=== PATIENT | female | born 1995 | race Caucasian/White ===

== ENCOUNTER → 2019-02-10 15:09 | Outpatient (CLI) | payer OTHER, SELFPAY ==
--- NOTE | 2019-02-10 15:14 | US_ITS ---
US breast LT complete INDICATION: : galactorrhea ORDERING PHYSICIAN: Carlton Lentz MD PATIENT AGE: 23 years FINDINGS: No cystic or solid lesions demonstrated. Small nodes in the axilla. IMPRESSION: Negative. Negative ultrasound does not exclude possibility of underlying breast pathology. Any palpable nodule should be managed on clinical basis. BI-RADS Category: 1 Negative Follow-up suggested as clinically warranted (A letter has been sent to the patient regarding results of the study.)
--- NOTE | 2019-02-10 15:14 | US_ITS ---
US transvaginal HISTORY: ITS.REASON: PELVIC PAIN ORDERING PHYSICIAN: Carlton Lentz MD PATIENT AGE: 23 years Comparison: None FINDINGS: The uterus is 7 x 3 x 4 cm with a combined endometrial thickness of 9 mm. No uterine mass. Left ovary is 3 x 1.3 cm and has an unremarkable appearance. Right ovary is 3 x 3 cm with small follicles. Bilateral ovarian blood flow is present. No cul-de-sac fluid apparent. IMPRESSION: Unremarkable pelvic ultrasound
--- NOTE | 2019-02-10 15:14 | US_ITS ---
US breast RT complete INDICATION: Greenish discharge, galactorrhea ORDERING PHYSICIAN: Carlton Lentz MD PATIENT AGE: 23 years COMPARISON: None TECHNIQUE: Right breast ultrasound with axilla FINDINGS: No cystic or solid lesions demonstrated. Small nodes in the axilla IMPRESSION: Unremarkable. Negative ultrasound does not exclude the possibility of underlying breast pathology. Please correlate with physical exam. Any palpable nodule should be managed on a clinical basis. BI-RADS Category: 1 Negative Follow-up suggested as clinically warranted (A letter has been sent to the patient regarding results of the study.)
== END ==
PROVIDERS: Visit Provider Obstetrics & Gynecology
DX: R10.2 Pelvic and perineal pain (principal); N64.3 Galactorrhea not associated with childbirth
CPT/HCPCS: 76641; 76830

== ENCOUNTER → 2019-02-28 11:51 | Outpatient (CLI) | payer OTHER, SELFPAY ==
--- NOTE | 2019-02-28 11:56 | FL_ITS ---
FL hysterosalpingography CLINICAL INDICATION: ITS.REASON: fallopian tube occlusion ORDERING PHYSICIAN: Carlton Lentz MD PATIENT AGE: 23 years Comparison: None Fluoroscopy time: 47 seconds FINDINGS: Only 3 images are submitted to the which are Design Drafter Chief image. One image submitted with contrast injection. There is poor filling of the uterine canal with contrast present in the right isthmus of the uterus and in the right fallopian tube which is small with a somewhat irregular appearance. Contrast does flow into the peritoneum from the right. The left fallopian tube is not visualized on this exam. IMPRESSION: 1. Nonvisualization of left fallopian tube. 2. Poor visualization of the uterine cavity. 3. The right fallopian tube does fill and is somewhat small but does appear to be patent
== END ==
PROVIDERS: Visit Provider Obstetrics & Gynecology
DX: N97.1 Female infertility of tubal origin (principal)
CPT/HCPCS: 74740; Q9967

== ENCOUNTER 2020-09-04 22:45 | Emergency (ER) | payer MEDICAID, SELFPAY ==
[2020-09-04 22:59] VITALS: BP 109/51; PULSE 93; RESP 17; TEMP 36.8; O2SAT 100; BMI 21.4
--- NOTE | 2020-09-04 23:08 | HMH.EDWNDL ---
ED Disposition Clinical Impression: Laceration Disposition: Home, Self-Care Condition on Discharge: Good Instructions: DI for Laceration Repair Additional Instructions: suture out 10-12 days and recheck if needed Referrals: Madhu Canchola MD [Primary Care Provider] - - Critical Care Critical Care Time: No Attestation: On 09/04/20, the high probability of a clinically significant, sudden or life threatening deterioration of the following system(s) required my full and direct attention, intervention and personal management. The time I documented below is in addition to time spent performing reported procedures but includes the following listed in this critical care notation. Medical Decision Making - Medical Records Medical records reviewed: Yes: I reviewed the patient's medical records. - Ran Inquiry Pt receiving controlled substance: No Vital Signs: 09/04/20 22:59 Temperature 98.2 F Temperature Source Oral Pulse Rate [Right Brachial] 93 H Respiratory Rate 17 Blood Pressure [Right Arm] 109/51 L Blood Pressure Mean [Right Arm] 70 Blood Pressure Source [Right Arm] Automatic Cuff Blood Pressure Position [Right Arm] Sitting 02 Sat by Pulse Oximetry 100 Oxygen Delivery Method Room Air - Lab Data Lab results reviewed: Yes: I reviewed the patient's lab results. Orders (Tests/Meds): ED MEDICATIONS Discontinued Medications Generic Name Dose Route Start Last Admin Trade Name Freq PRN Reason Stop Dose Admin Tetanus/Diphtheria Toxoids 0.5 ml 09/04/20 23:04 09/04/20 23:12 Tetanus-Diphth Toxoid, Adult 0.5ml Syr IM 09/04/20 23:05 0.5 ml .ONCE ONE Administration Wound/Laceration HPI - General Chief Complaint: Wound/Laceration Stated Complaint: A 1202@2230 lac l hand Time Seen by Provider: 09/04/20 23:08 Mode of Arrival: Family Vehicle Source of Information: Patient, Spouse, Medical Record Limitations: No Limitations Description of Symptoms (Recalled from ER Triage Doc. by RN): pt states she was trying to open a package with a knife and slipped and cut the top of her left hand; no issues with movement noted. minimal bleeding. - History of Present Illness HPI narrative: lac to dorsum of lt hand at home tonight with knife Onset (ago): hour(s) Extremity Location: Left: hand Place: home Patient tetanus UTD: No Context: sharp object use Associated symptoms: none - Related Data Home Medications Medication Instructions Recorded Confirmed Buprenorphine HCl/Naloxone HCl 1 each SL DAILY 10/30/18 04/07/19 [Suboxone 8 mg-2 mg Sl Film] Allergies Allergy/AdvReac Type Severity Reaction Status Date / Time No Known Allergies Allergy Verified 03/13/19 08:22 [facility] History - Hepatitis A Screen Drug use history?: No High risk sexual behaviors?: No History of sexually transmitted infection?: No Currently employed?: No Childcare worker?: No Do you have indoor plumbing?: Yes Do you have electricity?: Yes Attestation statement:: This patient has been screened for Hepatitis A risk factors. I have reviewed the patient's past medical history: Yes Medical History: Denies:: Cancer, Diabetes Mellitus Type 1, Diabetes Mellitus Type 2, MRSA Laterality Cases: Bilateral: Tonsillectomy Other Surgeries: Yes: Other Amputation: No Fractures: No Comment: 2009- T&A. 2010- wisdom teeth. 2015- Dx. lap, Exp. lap, Evacuation of massive hemoperitoneum, adhesiolysis with partial omentectomy, Rt. SalpingX. 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 Ectopic ROS Obtained: Yes All systems reviewed & no additional complaints Physical Exam - General General appearance: alert - Hea
[2020-09-04 23:28] VITALS: BP 114/72; PULSE 73; RESP 18; TEMP 36.8; O2SAT 98
== END 2020-09-04 23:33 | disposition home or self-care (01) ==
PROVIDERS: Emergency Provider Emergency Medicine; PCP Emergency Medicine
DX: S61.412A Laceration without foreign body of left hand, initial encounter (principal); W26.0XXA Contact with knife, initial encounter; Y92.019 Unspecified place in single-family (private) house as the place of occurrence of the external cause; Z23 Encounter for immunization; F17.210 Nicotine dependence, cigarettes, uncomplicated
CPT/HCPCS: 12001; 90714; 99282

== ENCOUNTER → 2020-09-11 12:58 | Outpatient (CLI) | payer MEDICAID, SELFPAY ==
[2020-09-13 11:26] LABS: Covid-19 Nasal PCR Sendout Lex Not Detected
== END ==
PROVIDERS: PCP Emergency Medicine; Visit Provider Emergency Medicine
DX: Z03.818 Encounter for observation for suspected exposure to other biological agents ruled out (principal)
CPT/HCPCS: U0004

== ENCOUNTER → 2021-08-26 16:04 | Outpatient (CLI) | payer OTHER, SELFPAY | PROVIDERS: PCP Emergency Medicine; Visit Provider Nurse Practitioner | DX: Z20.822 Contact with and (suspected) exposure to COVID-19 (principal) | CPT/HCPCS: C9803; U0003; U0005 ==

== ENCOUNTER 2025-10-01 01:26 | Observation (INO) | payer SELFPAY ==
[2025-10-01] VITALS (12 sets, daily range): BP systolic 117–140; BP diastolic 74–103; PULSE 68–161; RESP 16–30; TEMP 36.6–36.9; O2SAT 91–99; BMI 29.2; BMI 26.1
--- NOTE | 2025-10-01 01:14 | ECG_ITS ---
APPROVED REPORT Exam: Resting ECG HR:166 bpm ECG Measurements Heart Rate 166 AXES ND 69 P 94 QRSd 100 QRS -35 QT 275 T 79 QTc 366 Conclusion SINUS TACHYCARDIA WITH SHORT ND INTERVAL INDETERMINATE AXIS INCOMPLETE RIGHT BUNDLE BRANCH BLOCK [90+ ms QRS DURATION, TERMINAL R IN V1/V2, 40+ ms S IN I/aVL/V4/V5/V6] st depression noted CRITICAL TEST RESULT UNCONFIRMED REPORT Electronically signed by : GERALD BOB, 10/05/2025 04:32:47
--- NOTE | 2025-10-01 01:23 | XR_ITS ---
PROCEDURE INFORMATION: Exam: XR Chest Exam date and time: 10/01/2025 1:37 AM Age: 30 years old Clinical indication: Other: Asthma exacerbation TECHNIQUE: Imaging protocol: Radiologic exam of the chest. Views: 1 view. COMPARISON: CT - ABDPELW CT abdomen pelvis w con 04/07/2019 12:51 AM FINDINGS: Lungs: Paucity of lung markings in the right upper lung zone may represent emphysematous changes. No consolidation. Prominent right hilar lymph node is noted. Pleural spaces: Unremarkable. No pleural effusion. No pneumothorax. Heart/Mediastinum: Unremarkable. No cardiomegaly. Vasculature: Unremarkable. Bones/joints: Unremarkable. IMPRESSION: Paucity of lung markings in the right upper lung zone may represent emphysematous changes. Solitary prominent right hilar lymph node.
--- NOTE | 2025-10-01 01:25 | ED_ITS ---
Discharge Plan Disposition Patient Disposition: Admitted Prescriptions Prescriptions: No Action buprenorphine-naloxone 1 EACH film 1 each SL DAILY Referrals Follow up/Referrals: Madhu Canchola MD [Primary Care Provider, Family Practice] - See instructions Clinical Impressions Clinical Impression: Asthma with severe exacerbation, Rhinovirus, Respiratory failure with hypoxia and hypercapnia Print Language Print Language: German Discharge ED Provider: Archie Mitchell General Adult HPI General Chief complaint: Shortness of Breath/Dyspnea Stated complaint: SOA Time Seen by Provider: 10/01/25 01:26 History of Present Illness HPI narrative: 30-year-old female with history of asthma presents for shortness of breath. She reports that she has had worsening shortness of breath since . She has been using her breathing treatments at home but they have not been working. She reports chronic tachycardia with a baseline heart rate around 115. She reports nonproductive cough. Feels feverish. Related Data Home Medications ?Medication ?Instructions ?Recorded ?Confirmed buprenorphine 8 mg-naloxone 2 mg 1 each SL DAILY drug abuse 10/30/18 04/07/19 sublingual film Allergies Allergy/AdvReac Type Severity Reaction Status Date / Time No Known Allergies Allergy Verified 03/13/19 08:22 [facility] Disclaimer: The information contained in this section may have been updated after the patient was seen, as this information can be updated by other users. Social History Smoking Status: Former smoker tobacco type: cigarettes packs per day: 1 alcohol intake: never substance use type: unknown current occupational status: unemployed Travel in the last 8 weeks?: None Other Medical History Have you received the Flu Vaccine for this season: No Have you received the Pneumonia Vaccine: No ROS Obtained: Yes All systems reviewed & no additional complaints except as documented Physical Exam General General appearance: alert and in distress Head Head exam: atraumatic and normocephalic Eye Eye exam: Present normal appearance, PERRL and EOMI ENT ENT exam: Present normal oropharynx and normal external ear exam Neck Neck exam: Present normal inspection and full ROM Chest Chest inspection: Present normal inspection and symmetric chest wall rise; Absent tenderness Respiratory Respiratory exam: Present respiratory distress, wheezes, accessory muscle use and prolonged expiratory phase Cardiovascular Cardiovascular exam: Present normal rhythm and tachycardia Abdominal Exam Abdominal exam: Present soft; Absent distention, tenderness or guarding Extremities Exam Extremities exam: Present normal inspection; Absent edema or joint swelling Back Exam Back exam: Present normal inspection; Absent tenderness Neurological Exam Neurological exam: Present alert and oriented X3; Absent motor sensory deficit Psychiatric Psychiatric exam: Present normal affect and normal mood Skin Skin exam: Present warm, dry and normal color Lymphatic Lymphatic Findings: no adenopathy Medical Decision Making Medical Records Medical records reviewed: Yes I reviewed the patient's medical records. Screening: Per USPSTF and CDC recommendations, given the prevalence of disease in our region, it is our hospital?s policy to screen for HIV and viral Hepatitis for all patients aged 18 and over and those with ongoing risk factors. Ran Inquiry Pt receiving controlled substance: No Ran was queried for this patient: No Vital Signs: 10/01/25 01:23 10/01/25 01:25 10/01/25 01:25 Temperature 97.9 F Temperature Source Oral Pulse Rate [Left] 161 H Respiratory Rate 18 Blood Pressure [Right Arm] 128/78 Blood Pressure Mean [Right Arm] 94 02 Sat by Pulse Oximetry 98 98 Oxygen Delivery Method Room Air BiPAP Fraction of Inspired Oxygen 60 60 10/01/25 01:30 Temperature Temperature Source Pulse Rate [Left] Respiratory Rate Blood Pressure [Right Arm] Blood Pressure Mean [Right Arm] 02 Sat by Pulse Oximetry 98 Oxygen Delivery Method Room Air Fraction of Inspired Oxygen Lab Data Lab results reviewed: Yes I reviewed the patient's lab results. Lab Results 10/01/25 01:22: WBC 13.7 H, RBC 4.67, Hgb 15.0, Hct 43.7, MCV 93.6, MCH 32.1 H, MCHC 34.3, RDW 11.9, Plt Count 340, MPV 12.0 H, Neut % (Auto) 56.9, Lymph % (Auto) 20.6, Atkinson % (Auto) 9.7 H, Eos % (Auto) 11.6, Baso % (Auto) 1.0, Neut # (Auto) 7.8, Lymph # (Auto) 2.8, Atkinson # (Auto) 1.3 H, Eos # (Auto) 1.6 H, Baso # (Auto) 0.1, Sodium 138, Potassium 4.2, Chloride 100, Carbon Dioxide 26, Anion Gap 16.2 H, BUN 8, Creatinine 0.70, Estimated Creat Clear 167, Estimated GFR 98, Est GFR ( Amer) 119, Glucose 153 H, Calcium 9.2, Magnesium 1.9, Total Bilirubin 1.3, AST 38 H, ALT 51, Alkaline Phosphatase 67, Troponin I < 0.01, T otal Protein 9.3 H, Albumin 5.1 H, Globulin 4.2 H, Albumin/Globulin Ratio 1.2, HCV Ab JEIMY w/Rflx PCR Qn Reactive, HIV Ag/Ab Combo Qual Negative 10/01/25 01:25: VBG pH 7.27 L, VBG pCO2 53.5 H, VBG pO2 34.4, VBG HCO3 23.8, VBG Total CO2 25.4, VBG O2 Saturation 60.2, VBG Base Excess -3.2 L, VBG Lactic Acid 2.2 H 10/01/25 03:30: SARS-CoV-2 (PCR) Not detected, Influenza Type A (PCR) Not detected, Influenza Type B (PCR) Not detected, RSV (PCR) Not detected, R hinovirus (PCR) Detected A 10/01/25 01:22 10/01/25 01:22 Orders (Tests/Meds): ED MEDICATIONS Discontinued Medications Generic Name Dose Route Start Last Admin Trade Name Freq PRN Reason Stop Dose Admin Albuterol/Ipratropium 3 ml 10/01/25 01:23 10/01/25 01:29 Ipratropium/Albuterol 3 Ml Neb IH 10/01/25 01:24 3 ml ONCE ONE Administration Sodium Chloride 1,000 mls @ 999 mls/hr 10/01/25 01:30 10/01/25 03:04 Sod Chlor 0.9% 1000ml Bag IV 10/01/25 02:30 Infused .Q1H1M RADHA Infusion Magnesium Sulfate 2 gm in 50 mls @ 50 mls/hr 10/01/25 01:23 10/01/25 03:03 Magnesium Sulfate 2gm/50ml Premix IV 10/01/25 02:22 Infused ONCE ONE Infusion Methylprednisolone Sodium Succinate 125 mg 10/01/25 01:23 10/01/25 01:29 Methylprednisolone Sod Succ 125mg Vial IV 10/01/25 01:24 125 mg ONCE ONE Administration ORDERS Category Date Time Status CXR --portable [XR chest portable] Stat Exams 10/01/25 01:23 Completed CBC w/Auto Diff [Complete Blood Count Auto Diff] Stat Lab 10/01/25 01:22 Completed CMP [Comprehensive Metabolic Panel] Stat Lab 10/01/25 01:22 Completed HCV RNA PCR, Quant Stat Lab 10/01/25 01:22 Received HIV Combo Stat Lab 10/01/25 01:22 Completed Hepatitis C Ab Qual. W/ RFX Stat Lab 10/01/25 01:22 Completed Magnesium Stat Lab 10/01/25 01:22 Completed Mini Respiratory Panel Stat Lab 10/01/25 03:30 Completed Troponin I Q3H Lab 10/01/25 01:22 Completed Troponin I Q3H Lab 10/01/25 04:30 Ordered Blood Culture Stat Micro 10/01/25 02:46 Received VBG [Venous Blood Gas] Stat RT 10/01/25 01:25 Completed Medical Decision Narrative: 30-year-old female with history of asthma presents for severe shortness of breath, worsening over the last several days. History was obtained via interactive discussion with patient, EMS. On arrival, patient is tachycardic to the 160s, normotensive, satting mid 90s on nonrebreather via EMS, moving all extremities spontaneously. Full physical exam performed and significant for diaphoresis, significant respiratory distress, accessory muscle use, wheezing, prolonged expiratory phase Differential includes but is not limited to asthma exacerbation, pneumothorax, pneumonia, SVT, sinus tach, A-fib. Patient was given 1 L IV fluid bolus, DuoNeb x 2, 125 Solu-Medrol, 2 g mag for symptomatic management and correction of underlying abnormalities. Workup initiated including broad-spectrum labs, chest x-ray, EKG. On re-evaluation, patient is symptomatically improved on the BiPAP, breathing more comfortably, lungs clearing. Heart rate improved to the 140s Laboratory workup independently interpreted by me and significant for leukocytosis with white count of 13.7. Respiratory acidosis noted on VBG with mildly elevated lactate. Negative initial troponin. Rhinovirus noted on mini respiratory panel. Imaging independently interpreted by me and significant for no opacity consistent with pneumonia or effusion. See radiology read for full review of final results. EKG independently interpreted by me and significant for sinus tachycardia, ventricular rate of 166, no significant ST elevation. Interpreted at 0114. On further reassessment, patient was taken off BiPAP and became hypoxic. She was placed on 2 L nasal cannula and is now satting appropriately. Her work of breathing remains improved. Her tachycardia has improved from the 160s to the 130s. Given patient history, exam and workup, patient's presentation most likely represents asthma exacerbation and acute hypoxic and hypercarbic respiratory failure secondary to rhinovirus. Patient is agreeable to admission. Interactive discussion was had with hospitalist on-call. Procedures Risk/Benefits of Procedure(s) Were Explained: Yes Critical Care Critical Care Time Critical Care Time: Yes Attestation: On 10/01/25, the high probability of a clinically significant, sudden or life threatening deterioration of the following system(s) required my full and direct attention, intervention and personal management. The time I documented below is in addition to time spent performing reported procedures but includes the following listed in this critical care notation. Total Time Total Critical Care Time: 70
[2025-10-01] MEDS: IPRATROPIUM/ALBUTEROL 3 ML NEB IH ×2 (01:29→06:28)
[2025-10-01] MEDS: METHYLPREDNISOLONE SOD SUCC 125MG VIAL 125 MG IV (01:29)
[2025-10-01] MEDS: 0.9 % SODIUM CHLORIDE 1000ML 1,000 ML 999 ML IV (01:29)
[2025-10-01] MEDS: MAGNESIUM SULFATE IN WATER 2 GM/50 ML PIGGYBACK IV (01:29)
[2025-10-01 01:30] LABS: Hematocrit 43.7 % (37.0-47.0); Hemoglobin 15.0 g/dL (12.2-16.2); Immature Granulocytes % 0.2 %; Mean Corpuscular HGB Conc 34.3 g/dL (31.8-35.4); Mean Corpuscular Hemoglobin 32.1 pg (27.0-31.2); Mean Corpuscular Volume 93.6 fl (81-99); Nucleated Red Blood Cells % 0 %; Platelet Count 340 K/mm3 (142-424); Red Blood Count 4.67 M/mm3 (4.20-5.40); Red Cell Distribution Width-SD 40.9 fL; White Blood Count 13.7 K/mm3 (4.8-10.8)
[2025-10-01 01:35] LABS: VBG HCO3 23.8 mmol/L (23-30); VBG PH 7.27 mmol/L (7.31-7.41); VBG PO2 34.4 mmol/L (28-40)
[2025-10-01 01:37] LABS: Lactate Venous 2.2 mmol/L (0.4-2.0); VBG PCO2 53.5 mmol/L (35-51)
--- NOTE | 2025-10-01 01:38 | PC.NURSE ---
CRITICAL PH 7.27 CO2 53.5
[2025-10-01 01:39] LABS: Alanine Aminotransferase 51 U/L (12-78); Albumin Level 5.1 g/dl (3.5-5.0); Albumin/Globulin Ratio 1.2 (1.1-1.8); Alkaline Phosphatase 67 U/L (38-126); Anion Gap 16.2 mEq/L (5-15); Aspartate Amino Transferase 38 U/L (14-36); Bilirubin,Total 1.3 mg/dl (0.2-1.3); Blood Urea Nitrogen 8 mg/dl (7-17); Calcium 9.2 mg/dl (8.4-10.2); Carbon Dioxide 26 mmol/L (22.0-30.0); Chloride 100 mmol/L (98-107); Creatinine Clearance Estimated 167 mL/min (50-200); Creatinine,Serum 0.70 mg/dl (0.52-1.04); Estimated Glomerular Filt Rate 98 ml/min (>60); GFR (African American) 119 ML/MIN (>60); Globulin 4.2 g/dL (1.3-3.2); Glucose 153 mg/dl (74-100); Potassium 4.2 mmoL/L (3.5-5.1); Sodium 138 mmol/L (136-145); Total Protein,Serum 9.3 g/dl (6.3-8.2)
[2025-10-01 01:40] LABS: Magnesium 1.9 mg/dl (1.6-2.3)
--- OUTSIDE RECORDS SUMMARY | 2025-10-01 01:41 | XMS_ITS | Clinical Summary ---
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 Phone Unavailable Primary Care Provider Unavailabl e Allergies No known active allergies Medications No known medications Active Problems No known active problems Social History Tobacco Use Types Packs/Day Years Used Date Smoking Tobacco: Every Day Smokeless Tobacco: Never Intimate Partner Violence Answer Date R ecorded Insults You Not on file 07/29/2021 Threatens You Not on file 07/29/2021 Screams at You Not on file 07/29/2021 Physically Hurt Not on file 07/29/2021 Intimate Partner Violence Score Not on file 07/29/2021 Stress Answer Date Recorded Stress in your Life Not on file 08/09/2024 Dealing with Stress 3 08/09/2024 Comments Unknown Sex and Gender Information Value Date Recorded Sex Assigned at Not on file Legal Sex Female 3:30 PM CDT Gender Identity Not on file Sexual Orientation Not on file Last Filed Vital Signs Vital Sign Reading Time Taken Comments Blood Pressure - - Pulse 97 08/01/2021 5:57 PM EDT Temperature 37.1 C (98.8 F) 09/04/2021 5:42 PM EST Respiratory Rate - - Oxygen Saturation 99% 08/01/2021 5:57 PM EDT Inhaled Oxygen Concentration - - Weight - - Height - - Body Mass Index - - Plan of Treatment Health Maintenance Due Date Last Done Comments Cervical Cancer Screening Combo 1995 Dental Cleaning/Exam 1995 HIV Screening 1995 HPV only / HPV + Pap 1995 Hepatitis C Screening 1995 Pap only testing 1995 HPV Immunization (1 - 2-dose series) 2006 Annual Preventive Exam 2013 Hep B Infection Screening - Triple Screen 2013 Hepatitis B Immunization (1 of 3 - 19+ 3-dose series) 2014 Pneumococcal Immunization (1 of 2 - PCV) 2014 Tetanus Diphtheria and Pertu ssis Immunization (1 - Tdap) 2014 Covid-19 Immunization (1 - 2 season) 2025 Influenza Immunization (#1) 2025 HIB Immunization Aged Out No longer e ligible based on patient's age to complete this topic Hepatitis A Immunization Aged Out No longer eligible based on patient's age to complete this topic Polio Immunization Aged Out No longer eligible based on patient's age to complete this topic Varicella Immunization Aged Out No lo nger eligible based on patient's age to complete this topic Insurance OPT OUT NO COPAY NB
--- OUTSIDE RECORDS SUMMARY | 2025-10-01 01:41 | XMS_ITS | Referral Summary ---
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
--- OUTSIDE RECORDS SUMMARY | 2025-10-01 01:41 | XMS_ITS | Clinical Summary ---
Author Organization [facility] ([place], [place], [place], [place], [place]) Address [address] [place] [address] Care Team Providers Care Service Engineer Name Role Phone Unavailable Primary Care Provider [...]
[2025-10-01 01:53] LABS: Troponin I < 0.01 ng/ml (0.00-0.034)
[2025-10-01 03:17] LABS: Hepatitis C Ab Qual. W/ RFX REACTIVE (Negative)
[2025-10-01 03:31] LABS: Coronavirus 19, PCR Not Detected (NotDetected); Influenza A, PCR Not Detected (NotDetected); Influenza B, PCR Not Detected (NotDetected)
--- NOTE | 2025-10-01 04:25 | PC.NURSE ---
Report called to Loan DAWKINS
[2025-10-01 05:36] LABS: Reflex Lactic Add Lactic Reflex
--- NOTE | 2025-10-01 05:56 | EXP.HP ---
History of Present Illness *Admission Date: 10/01/25 *Reason for visit:: Asthma *History of present illness: 30-year-old female with history of asthma presents for severe shortness of breath, worsening over the last several days. On arrival, patient is tachycardic to the 160s, normotensive, satting mid 90s on nonrebreather via EMS. significant respiratory distress, accessory muscle use, wheezing, prolonged expiratory phase Emergency Department patient was given 1 L IV fluid bolus, DuoNeb x 2, 125 Solu-Medrol, 2 g mag leukocytosis with white count of 13.7 Respiratory acidosis noted on VBG with mildly elevated lactate. improved on the BiPAP Rhinovirus noted on mini respiratory panel. On further reassessment, patient was taken off BiPAP and became hypoxic. She was placed on 2 L nasal cannula and is now satting appropriately On floor patient was clinically improved. Still short of breath and on nasal cannula. Otherwise feeling mildly better. Answered all questions. No other concerns at this time History independently obtained. Diagnostics independently reviewed. Case discussed with ER physician [facility] Disclaimer: The information contained in this section may have been updated after the patient was seen, as this information can be updated by other users. Medical History (Updated 10/01/25 @ 05:24 by Marycruz Lamas RN) Asthma Social History Smoking Status: Former smoker tobacco type: cigarettes packs per day: 1 alcohol intake: never substance use type: unknown current occupational status: unemployed Travel in the last 8 weeks?: None Other Medical History Have you received the Flu Vaccine for this season: No Have you received the Pneumonia Vaccine: No Review of Systems Review of Systems Review of systems:: pertinent systems reviewed and negative unless documented below Constitutional Constitutional: Reports system reviewed and no additional complaints, except as documented Eyes Eyes: Reports system reviewed and no additional complaints, except as documented ENT Ears, Nose, Mouth, and Throat: Reports system reviewed and no additional complaints, except as documented *Cardiovascular Cardiovascular: Reports system reviewed and no additional complaints, except as documented *Respiratory Respiratory: Reports system reviewed and no additional complaints, except as documented *Gastrointestinal Gastrointestinal: Reports system reviewed and no additional complaints, except as documented *Genitourinary Genitourinary: Reports system reviewed and no additional complaints, except as documented *Musculoskeletal Musculoskeletal: Reports system reviewed and no additional complaints, except as documented *Neurologic Neurologic: Reports system reviewed and no additional complaints, except as documented Meds Home Medications and Allergies Home Medications ?Medication ?Instructions ?Recorded ?Confirmed ?Type buprenorphine 8 mg-naloxone 2 mg 1 each SL DAILY drug abuse 10/30/18 10/01/25 History sublingual film albuterol 90 mcg-budesonide 80 1 puff inhalation TID PRN 10/01/25 10/01/25 History mcg/actuation HFA aerosol inhaler shortness of air New Prescriptions to Start Prescriptions: Allergies Allergy/AdvReac Type Severity Reaction Status Date / Time No Known Allergies Allergy Verified 03/13/19 08:22 Exam Data for Last 24 hours Vital signs and Labs for Last 24 Hours: Temp Pulse Resp BP Pulse Ox O2 Del Method O2 Flow Rate 98.5 F 119 H 20 117/86 94 L Room Air 3 10/01/25 04:47 10/01/25 04:47 10/01/25 04:47 10/01/25 04:47 10/01/25 04:30 10/01/25 05:00 10/01/25 04:47 FiO2 60 10/01/25 01:25 Laboratory Results - last 24 hr 10/01/25 01:22: WBC 13.7 H, RBC 4.67, Hgb 15.0, Hct 43.7, MCV 93.6, MCH 32.1 H, MCHC 34.3, RDW 11.9, Plt Count 340, MPV 12.0 H, Neut % (Auto) 56.9, Lymph % (Auto) 20.6, [place] % (Auto) 9.7 H, Eos % (Auto) 11.6, Baso % (Auto) 1.0, Neut # (Auto) 7.8, Lymph # (Auto) 2.8, [place] # (Auto) 1.3 H, Eos # (Auto) 1.6 H, Baso # (Auto) 0.1, Sodium 138, Potassium 4.2, Chloride 100, Carbon Dioxide 26, Anion Gap 16.2 H, BUN 8, Creatinine 0.70, Estimated Creat Clear 167, Estimated GFR 98, Est GFR ( Amer) 119, Glucose 153 H, Calcium 9.2, Magnesium 1.9, Total Bilirubin 1.3, AST 38 H, ALT 51, Alkaline Phosphatase 67, Troponin I < 0.01, Total Protein 9.3 H, Albumin 5.1 H, Globulin 4.2 H, Albumin/Globulin Ratio 1.2, HCV Ab JEIMY w/Rflx PCR Qn Reactive, HIV Ag/Ab Combo Qual Negative 10/01/25 01:25: VBG pH 7.27 L, VBG pCO2 53.5 H, VBG pO2 34.4, VBG HCO3 23.8, VBG Total CO2 25.4, VBG O2 Saturation 60.2, VBG Base Excess -3.2 L, VBG Lactic Acid 2.2 H 10/01/25 03:30: SARS-CoV-2 (PCR) Not detected, Influenza Type A (PCR) Not detected, Influenza Type B (PCR) Not detected, RSV (PCR) Not detected, Rhinovirus (PCR) Detected A I & O for Last 24 hours: Intake & Output 09/28/25 09/29/25 09/30/25 10/01/25 23:59 23:59 23:59 23:59 Intake Total 1050 / 1050 Balance 1050 / 1050 Weight 89.811 kg Constitutional Constitutional: no acute distress *Routine HEENT Exam Head: Present normocephalic Eye: Present EOMI and PERRL ENT: Present mucous membranes moist *Routine Neck Exam Neck: Present supple; Absent lymphadenopathy *Routine Respiratory Exam Respiratory: Present wheezes *Routine Cardiovascular Exam Cardiovascular: Present RRR *Routine Abdominal Exam Abdominal: Present soft and normoactive bowel sounds; Absent tenderness *Routine Rectal Exam Rectal:: deferred *Routine Genitalia Exam Genitalia:: deferred *Routine Extremities Exam Extremities: Absent cyanosis, clubbing or edema *Routine Skin Exam Skin: Present warm; Absent rash *Routine Neurological Exam Neurological: Present alert and oriented X3 Assessment and Plan *Assessment and plan (1) Respiratory failure with hypoxia and hypercapnia: Status: Acute Category: Medical Code(s): J96.91 - Respiratory failure, unspecified with hypoxia; J96.92 - Respiratory failure, unspecified with hypercapnia (2) Rhinovirus: Status: Acute Category: Medical Code(s): B34.8 - Other viral infections of unspecified site (3) Asthma with severe exacerbation: Status: Acute Category: Medical Code(s): J45.901 - Unspecified asthma with (acute) exacerbation Plan Asthma exacerbation Rhinovirus - duoineb - prednisone 40 - Mag as needed - Supportive care - May need up titration of outpatient asthma regimen on discharge Leukocytosis - Monitor Respiratory acidosis Anion gap metabolic acidosis Lactic acidosis - BiPAP as needed - Monitor Mild transaminitis - Monitor
--- NOTE | 2025-10-01 08:45 | P.CONPHA_ITS ---
Pharmacy Intervention Comments: [facility], [facility] and pt interview. Pt has not had suboxone filled in pharmacy since december 2024
--- NOTE | 2025-10-01 08:45 | HMH.PHAINT1 ---
Pharmacy Intervention Comments: [facility], [facility] and pt interview. Pt has not had suboxone filled in pharmacy since december 2024
[2025-10-01 09:01] LABS: Lactate Venous 1.7 mmol/L (0.4-2.0); VBG HCO3 23.0 mmol/L (23-30); VBG PCO2 34.4 mmol/L (35-51); VBG PH 7.44 mmol/L (7.31-7.41); VBG PO2 98.6 mmol/L (28-40)
--- NOTE | 2025-10-01 09:34 | P.DS_ITS ---
<Statement entered by Cameron Sommer MD - 10/01/25 14:24> Rounded on patient after nurse practitioner. Personally examined and interviewed patient. Agree with exam findings and care plan as documented. General Admission date:: 10/01/25 Discharge date: 10/01/25 HPI HPI HPI: Ms. Craig is a 30-year-old female with a primary medical history of asthma who presented to the emergency department last night with severe shortness of breath, worsening over the last several days. Patient complains of intermittent shortness of breath, dry cough, wheezing. Denies fever, chills, abdominal pain, urinary symptoms, chest pain, N/V/D. Workup in the emergency department was significant for tachycardia, O2 saturation mid 90s on nonrebreather, respiratory distress, accessory muscle use, wheezing, prolonged expiratory phase. Patient's respiratory panel is positive for rhinovirus, leukocytosis of 13.7, respiratory acidosis noted on VBG with mildly elevated lactate. Patient was briefly placed on BiPAP and respiratory distress improved. Patient was given 1 L IV fluid bolus, DuoNeb 72, Solu-Medrol 125 mg IV, magnesium 2 g IV. Patient was transition from BiPAP to 2 L nasal cannula with O2 saturations staying above 90%. Hospital medicine was consulted for admission for acute respiratory failure with hypoxia and hypercapnia and asthma exacerbation. Hospital Course Hospital Course Hospital Course: Ms. Craig is a 30-year-old female who was admitted to the medical surgical floor for respiratory failure with hypoxia and hypercapnia and asthma exacerbation, requiring 2 L supplemental O2 to maintain O2 saturation greater than 90%. Hospital medicine was consulted for admission, and agreed to admit the patient. Hospital course as follows: #Acute respiratory failure with hypoxia and hypercapnia, resolved #Asthma exacerbation #Rhinovirus positive ?Patient was admitted to the medical surgical floor for observation due to respiratory failure, need for supplemental oxygen, asthma exacerbation. Patient initially placed on nasal cannula at 2-3 L. Patient able to transition to room air after only short amount of time of supplemental oxygen. Patient states her shortness of breath has significantly improved. Patient received steroids, magnesium, DuoNebs, fluids in the ED prior to admission. Initial VBG showed pH of 7.27, lactic acid 2.2. Repeat VBG this morning shows pH 7.44, lactic acid 1.7. ?Lung sounds on assessment- inspiratory and expiratory wheezing, prolonged exp iratory phase, no respiratory distress. Patient room air saturation 96%, walk test prior to discharge maintained O2 saturation greater than 92%. ?Patient initiated on on Advair inhaler 1 puff twice daily, will continue at discharge. Patient also has Airsupra inhaler 3 times daily as needed. Patient states her [id number] has been staying with her and smoking in her house which she believes triggered her asthma exacerbation. Education and counseling on avoiding asthma triggers. Patient given dexamethasone 8 mg IV prior to discharge. Discussed patient following with pulmonology at discharge, patient states she has no insurance and is not interested in seeing a PCP or zoo caretaker at this time. ?Lab work reassuring showing no electrolyte abnormalities, normal kidney function, no anemia. #Tachycardia ?Patient intermittently tachycardic during admission, states that she at baseline heart rate runs 120s. Discussed following up with a PCP for further evaluation of elevated heart rate. States that if she gets insurance she will follow-up with someone. Total time spent on discharge 32 minutes in counseling, documentation, chart review, and direct care with patient. Exam Data for Last 24 hours Vital signs and Labs for Last 24 Hours: Temp Pulse Resp BP Pulse Ox O2 Del Method O2 Flow Rate 97.8 F 124 H 20 140/81 96 Room Air 3 10/01/25 08:00 10/01/25 08:00 10/01/25 08:00 10/01/25 08:00 10/01/25 08:00 10/01/25 08:09 10/01/25 08:00 FiO2 60 10/01/25 01:25 Laboratory Results - last 24 hr 10/01/25 01:22: WBC 13.7 H, RBC 4.67, Hgb 15.0, Hct 43.7, MCV 93.6, MCH 32.1 H, MCHC 34.3, RDW 11.9, Plt Count 340, MPV 12.0 H, Neut % (Auto) 56.9, Lymph % (Auto) 20.6, [place] % (Auto) 9.7 H, Eos % (Auto) 11.6, Baso % (Auto) 1.0, Neut # (Auto) 7.8, Lymph # (Auto) 2.8, [place] # (Auto) 1.3 H, Eos # (Auto) 1.6 H, Baso # (Auto) 0.1, Sodium 138, Potassium 4.2, Chloride 100, Carbon Dioxide 26, Anion Gap 16.2 H, BUN 8, Creatinine 0.70, Estimated Creat Clear 167, Estimated GFR 98, Est GFR ( Amer) 119, Glucose 153 H, Calcium 9.2, Magnesium 1.9, Total Bilirubin 1.3, AST 38 H, ALT 51, Alkaline Phosphatase 67, Troponin I < 0.01, Total Protein 9.3 H, Albumin 5.1 H, Globulin 4.2 H, Albumin/Globulin Ratio 1.2, HCV Ab JEIMY w/Rflx PCR Qn Reactive, HIV Ag/Ab Combo Qual Negative 10/01/25 01:25: VBG pH 7.27 L, VBG pCO2 53.5 H, VBG pO2 34.4, VBG HCO3 23.8, VBG Total CO2 25.4, VBG O2 Saturation 60.2, VBG Base Excess -3.2 L, VBG Lactic Acid 2.2 H 10/01/25 03:30: SARS-CoV-2 (PCR) Not detected, Influenza Type A (PCR) Not detected, Influenza Type B (PCR) Not detected, RSV (PCR) Not detected, Rhinovirus (PCR) Detected A 10/01/25 08:44: VBG pH 7.44 H, VBG pCO2 34.4 L, VBG pO2 98.6 H, VBG HCO3 23.0, VBG Total CO2 24.1, VBG O2 Saturation 97.9 H, VBG Base Excess -1.1, VBG Lactic Acid 1.7 I & O for Last 24 hours: Intake & Output 09/28/25 09/29/25 09/30/25 10/01/25 23:59 23:59 23:59 23:59 Intake Total 1250 / 1250 Output Total 300 / 300 Balance 950 / 950 Weight 79.923 kg Constitutional Constitutional: no acute distress, average body habitus and cooperative *Routine HEENT Exam Head: Present normocephalic Eye: Present EOMI ENT: Present mucous membranes moist *Routine Neck Exam Neck: Present supple *Routine Respiratory Exam Respiratory: Present prolonged expiratory phase, wheezes (Inspiratory/expiratory), normal respiratory effort, able to speak in complete sentences and symmetric chest movement; Absent respiratory distress or crackles *Routine Cardiovascular Exam Cardiovascular: Present Normal S1, Normal S2 and tachycardia; Absent murmur *Routine Abdominal Exam Abdominal: Present soft and normoactive bowel sounds; Absent tenderness or distended *Routine Rectal Exam Patient deferred: visual exam *Routine Exam Patient deferred: external exam *Routine Extremities Exam Extremities: Present full ROM and normal capillary refill; Absent cyanosis, clubbing or edema *Routine Skin Exam Skin: Present intact, dry and warm; Absent rash *Routine Neurological Exam Neurological: Present alert, oriented X3, vision grossly intact, hearing grossly intact and normal speech Results Data Completed and Pending Labs on day of discharge: Labs from last 24 hours 10/01/25 10/01/25 10/01/25 08:44 03:30 01:25 WBC RBC Hgb Hct MCV MCH MCHC RDW Plt Count MPV Neut % (Auto) Lymph % (Auto) [place] % (Auto) Eos % (Auto) Baso % (Auto) Neut # (Auto) Lymph # (Auto) [place] # (Auto) Eos # (Auto) Baso # (Auto) VBG pH 7.44 H 7.27 L VBG pCO2 34.4 L 53.5 H VBG pO2 98.6 H 34.4 VBG HCO3 23.0 23.8 VBG Total CO2 24.1 25.4 VBG O2 Saturation 97.9 H 60.2 VBG Base Excess -1.1 -3.2 L VBG Lactic Acid 1.7 2.2 H Sodium Potassium Chloride Carbon Dioxide Anion Gap BUN Creatinine Estimated Creat Clear Estimated GFR Est GFR ( Amer) Glucose Calcium Magnesium Total Bilirubin AST ALT Alkaline Phosphatase Troponin I Total Protein Albumin Globulin Albumin/Globulin Ratio SARS-CoV-2 (PCR) Not detected HCV Ab JEIMY w/Rflx PCR Qn HIV Ag/Ab Combo Qual Influenza Type A (PCR) Not detected Influenza Type B (PCR) Not detected RSV (PCR) Not detected Rhinovirus (PCR) Detected A 10/01/25 01:22 WBC 13.7 H RBC 4.67 Hgb 15.0 Hct 43.7 MCV 93.6 MCH 32.1 H MCHC 34.3 RDW 11.9 Plt Count 340 MPV 12.0 H Neut % (Auto) 56.9 Lymph % (Auto) 20.6 [place] % (Auto) 9.7 H Eos % (Auto) 11.6 Baso % (Auto) 1.0 Neut # (Auto) 7.8 Lymph # (Auto) 2.8 [place] # (Auto) 1.3 H Eos # (Auto) 1.6 H Baso # (Auto) 0.1 VBG pH VBG pCO2 VBG pO2 VBG HCO3 VBG Total CO2 VBG O2 Saturation VBG Base Excess VBG Lactic Acid Sodium 138 Potassium 4.2 Chloride 100 Carbon Dioxide 26 Anion Gap 16.2 H BUN 8 Creatinine 0.70 Estimated Creat Clear 167 Estimated GFR 98 Est GFR ( Amer) 119 Glucose 153 H Calcium 9.2 Magnesium 1.9 Total Bilirubin 1.3 AST 38 H ALT 51 Alkaline Phosphatase 67 Troponin I < 0.01 Total Protein 9.3 H Albumin 5.1 H Globulin 4.2 H Albumin/Globulin Ratio 1.2 SARS-CoV-2 (PCR) HCV Ab JEIMY w/Rflx PCR Qn Reactive HIV Ag/Ab Combo Qual Negative Influenza Type A (PCR) Influenza Type B (PCR) RSV (PCR) Rhinovirus (PCR) DS: Diagnosis Discharge Diagnosis (1) Respiratory failure with hypoxia and hypercapnia: Status: Resolved Code(s): J96.91 - Respiratory failure, unspecified with hypoxia; J96.92 - Respiratory failure, unspecified with hypercapnia (2) Rhinovirus: Status: Acute Code(s): B34.8 - Other viral infections of unspecified site (3) Asthma with severe exacerbation: Status: Acute Code(s): J45.901 - Unspecified asthma with (acute) exacerbation Meds Home Medications and Allergies Home Medications ?Medication ?Instructions ?Recorded ?Confirmed ?Type albuterol 90 mcg-budesonide 80 1 puff inhalation TID P RN 10/01/25 10/01/25 History mcg/actuation HFA aerosol inhaler shortness of air fluticasone 100 mcg-salmeterol 50 1 inh inhalation BID RT #0 ea 10/01/25 Rx mcg/dose blistr powdr for inhalation New Prescriptions to Start Prescriptions: Allergies Allergy/AdvReac Type Severity Reaction Status Date / Time No Known Allergies Allergy Verified 03/13/19 08:22 Discharge Plan Disposition Patient Disposition: Home, Self-Care Condition: Good Follow up Plan Prescriptions/Medication Reconciliation: New fluticasone propion-salmeterol 100-50 mcg/dose Blister With Device 1 inh inhalation BIDRT Qty: 0 0RF Continued albuterol-budesonide 90-80 mcg/actuation Hfa Aerosol Inhaler 1 puff INHALATION TID PRN (Reason: shortness of air) Problem Reconciliation Problems Reviewed?: Yes Patient Discharge Instructions ACTIVITY: Continue current activity DIET: continue same diet Patient Instructions: DI for Asthma in Adults Print Language: Faroese Providers Primary Care Provider: Madhu Canchola Admit Provider: Eric Castro Attending Provider: Eric Castro
--- NOTE | 2025-10-01 10:02 | PC.NURSE ---
prformed walk test on pt. She was 90 on roomair when i walked in the room and after walk test on room air she was 94%
[2025-10-01] MEDS: DEXAMETHASONE 4MG/ML 1ML VIAL 8 MG IV (10:25)
--- NOTE | 2025-10-03 10:50 | SW/DCPLANNER ---
Phoned patient x2. Not able to leave messages or a call back number due to mailbox being full. Roni Wilson
== END 2025-10-01 11:50 | disposition home or self-care (01) ==
LOC: ER 03:45 → 2ND 03:51
PROVIDERS: Admitting Provider Student in an Organized Health Care Education/Training Program; Emergency Provider Emergency Medicine; PCP Emergency Medicine; Visit Provider Student in an Organized Health Care Education/Training Program
DX: J45.901 Unspecified asthma with (acute) exacerbation (principal); J96.91 Respiratory failure, unspecified with hypoxia; J96.92 Respiratory failure, unspecified with hypercapnia; B34.8 Other viral infections of unspecified site; R59.0 Localized enlarged lymph nodes; R91.8 Other nonspecific abnormal finding of lung field; R00.0 Tachycardia, unspecified; Z87.891 Personal history of nicotine dependence; Z79.51 Long term (current) use of inhaled steroids; D72.829 Elevated white blood cell count, unspecified; I45.10 Unspecified right bundle-branch block
CPT/HCPCS: 71045; 80053; 82803; 83735; 84484; 85025; 86803; 87040; 87389; 87522; 87631; 93005; 94640; 96361; 96365; 96375; 99285; G0378; J1100; J2919; J3475; J7030